=== PATIENT | female | born 1950 | race Caucasian/White ===

== ENCOUNTER 2021-01-28 20:54 | Inpatient (IN) | payer MEDICARE ==
[~2021-01-28] VITALS: Ht 157.5 cm; Wt 38.6 kg
--- NOTE | 2021-01-28 21:10 | NUR ---
BACK WINDER NOTES RECEIVED PATIENT A/OX4. CAME IN AT THIS TIME VIA STRETCHER. NO S/S OF APPARENT DISTRESS -- TOLERATING 2LPM OF O2 VIA NC. NO C/O PAIN. PATIENT WEAK AND CANNOT WALK. PATIENT NOTED TO HAVE MULTIPLE BRUISING. 2 IV LINE -- RFA AND LFA NOTED -- LFA IV LINE NOTED TO BE SWOLLEN AND HEMATOMA HENCE TAKEN OFF. RFA IV LINE INTACT AND PATENT. V/S FOLLOWS: BP: 108/75, HR- 87, T-98.5, AND SATURATING @100%. AWAITING FOR DOCTORS ORDERS.
[2021-01-28] MEDS ORDERED: ACETAMINOPHEN 325 MG TABLET PO PRN (22:00)
[2021-01-28] MEDS ORDERED: MAG HYDROX/AL HYDROX/SIMETH 30 ML UDC PO PRN (22:00)
[2021-01-28] MEDS ORDERED: ONDANSETRON HCL/PF 4 MG/2 ML VIAL IVP PRN (22:00)
[2021-01-28] MEDS ORDERED: Z GUARD REMEDY 2 OZ OINT TP PRN (22:00)
[2021-01-28] MEDS ORDERED: ZOLPIDEM TARTRATE 5 MG TABLET PO PRN (22:00)
[2021-01-28] MEDS ORDERED: IV NS 0.9% 1,000 ML IV PRN (22:00)
[2021-01-28] MEDS ORDERED: MAGNESIUM HYDROXIDE 30 ML UDC PO PRN (22:00)
[2021-01-28] MEDS ORDERED: ENOXAPARIN SODIUM 60 MG/0.6 ML DISP.SYRIN SQ SCH (22:00)
--- NOTE | 2021-01-28 22:00 | NUR ---
CMM PROGRAMMER NOTES PATIENT MRSA SURVEILLANCE SWAB DONE. ID BAND IN PLACE. STARTED ON IV FLUIDS NS @75 ML/HR. PATIENT TESTED RAPID COVID IN [facility] WHICH WAS NEGATIVE. LOVENOX HELD PER MD ORDER -- PROCEDURE TOMORROW.
[2021-01-28 22:06] VITALS: BP 108/75
--- NOTE | 2021-01-28 22:45 | NUR ---
SPA TECHNICIAN NOTE CONSENT SIGNED FOR CTA TOMORROW.
--- NOTE | 2021-01-28 23:01 | NUR ---
CARD TABLE ATTENDANT NOTES LAB CALLED FOR CRITICAL TROPONIN LEVEL OF 6.7 -- TRENDING UP (RECENTLY HIGH). MD NOTIFIED. NO NEW ORDERS.
[2021-01-28 23:54] VITALS: BP 111/72
[2021-01-29] VITALS (41 sets, daily range): BP systolic 66–144; BP diastolic 32–76
--- NOTE | 2021-01-29 04:10 | NUR ---
RN opening notes Received patient in bed, on room air tolerating well without distress. Alert and oriented, verbally able to communicate needs. No complaint of pain as of this time. Vital signs wnl. Noted with anxiety regarding the site of the catheter insertion. Assured patient that it is not bleeding and that there is just redness and bruising around the site. Will continue to monitor.. Addendum: 01/30/21 at 0450 by DAKSHA MOMIN RN wrong time documented
--- NOTE | 2021-01-29 05:56 | NUR ---
FLIGHT SUPERINTENDENT NOTE PATIENT WILL GO TO ICU AFTER CTA -- ROOM 253. PER CHARGE NURSE.
[2021-01-29 06:26] LABS: BASOPHILS % (AUTO) 0.7 % (0.0-2.0); EOSINOPHILS % (AUTO) 0.9 % (0.0-6.0); HEMATOCRIT 31 % (33-45); HEMOGLOBIN 10.2 g/dL (11.5-14.8); LYMPHOCYTES # (AUTO) 1.2 K/uL (0.8-4.8); MEAN CORPUSCULAR HGB CONC 33 g/dl (31.0-36.0); MEAN CORPUSCULAR VOLUME 100 fL (82-100); MONOCYTES # (AUTO) 0.5 K/uL (0.1-1.30); MONOCYTES % (AUTO) 8.4 % (2.0-12.0); NEUTROPHILS # (AUTO) 3.9 K/uL (1.8-8.9); PLATELET COUNT (AUTO) 176 K/uL (150-450); RED BLOOD CELL COUNT(AUTO) 3.06 MIL/uL (4.0-5.2); WHITE BLOOD COUNT (AUTO) 5.7 K/uL (4.3-11.0)
[2021-01-29 06:46] LABS: CHOLESTEROL 174 mg/dL (<200); HDL CHOLESTEROL 95 mg/dL (40-60); LDL 59 mg/dL (0-99); TRIGLYCERIDES 142 mg/dL (30-150)
[2021-01-29 06:48] LABS: ALANINE AMINOTRANSFERASE 16 U/L (12-78); ALBUMIN 3.6 g/dL (3.4-5.0); ALKALINE PHOSPHATASE 53 U/L (46-116); ASPARTATE AMINOTRANSFERASE 40 U/L (15-37); BILIRUBIN,TOTAL 0.6 mg/dL (0.2-1.0); CALCIUM, SERUM 8.9 mg/dL (8.5-10.1); CARBON DIOXIDE 27 mmol/L (21-32); CHLORIDE 102 mmol/L (98-107); CREATININE 1.4 mg/dL (0.6-1.3); GLUCOSE 90 mg/dL (74-106); PHOSPHORUS 4.6 mg/dL (2.5-4.9); POTASSIUM 4.1 mmol/L (3.5-5.1); SODIUM SERUM 142 mmol/L (136-145); TOTAL PROTEIN, SERUM 6.7 g/dL (6.4-8.2); UREA NITROGEN, BLOOD 38 mg/dL (7-18)
[2021-01-29] MEDS ORDERED: IV SET PRIMARY PUMP SET 1 EA INFUS.SET MC ONE (06:53)
[2021-01-29] MEDS ORDERED: IV NS 0.9% 1,000 ML ONE (06:53)
[2021-01-29] MEDS ORDERED: IODIXANOL 150 ML IV ONE ×2 (06:54→09:23)
[2021-01-29] MEDS ORDERED: LIDOCAINE HCL/MPF 1% 30 ML VIAL IJ ONE (06:54)
--- NOTE | 2021-01-29 07:00 | NUR ---
POST GRADUATE INTERN NOTES PATIENT TAKEN DOWN TO OR AT THIS TIME IN STABLE CONDITION.
[2021-01-29] MEDS ORDERED: FENTANYL PF 100MCG/2ML AMPUL ONE (07:37)
--- NOTE | 2021-01-29 07:37 | NUR ---
UNIVERSITY LECTURER OPENING NOTE RECEIVED REPORT FOR PATIENT - PATIENT IS CURRENTLY IN SWIMMING POOL SERVICEPERSON FOR PROCEDURE.
[2021-01-29] MEDS ORDERED: MIDAZOLAM HCL 2 MG/2ML VIAL ONE (07:38)
[2021-01-29] MEDS ORDERED: HEPARIN SODIUM, PORCINE 1,000 UNIT/ML VIAL ONE (07:38)
[2021-01-29] MEDS ORDERED: APIX5TAB PO (07:58)
[2021-01-29] MEDS ORDERED: FOLI0.8T3 PO (07:58)
[2021-01-29] MEDS ORDERED: TRAZ-257 PO (07:58)
[2021-01-29] MEDS ORDERED: ALPR1TAB7 PO (07:58)
[2021-01-29] MEDS ORDERED: ATOR40TA PO (07:58)
[2021-01-29] MEDS ORDERED: IODIXANOL 320MG/ML 100 ML IV ONE (08:18)
[2021-01-29] MEDS ORDERED: NICARDIPINE HCL 25 MG/10 ML VIAL IV ONE (08:21)
[2021-01-29] MEDS ORDERED: IODIXANOL 320MG/ML 50 ML IV ONE (08:55)
[2021-01-29] MEDS ORDERED: TICAGRELOR 90 MG TABLET PO ONE (09:00)
[2021-01-29] MEDS ORDERED: ASPIRIN 81 MG TAB.CHEW PO SCH (09:00)
[2021-01-29] MEDS ORDERED: ASPIRIN 81 MG TAB.CHEW ONE (09:01)
[2021-01-29] MEDS ORDERED: NITROGLYCERIN IN 5 % DEXTROSE 250 ML IV ONE (09:05)
[2021-01-29] MEDS ORDERED: NOREPINEPHRINE 4 MG/4 ML AMPUL IV ONE ×2 (09:09→09:13)
[2021-01-29] MEDS ORDERED: IV NS 0.9% 250 ML IV ONE (09:10)
--- NOTE | 2021-01-29 09:35 | NUR ---
TELEPHONE REPORT RECEIVED FROM QUALITY CONTROL ANALYST, SHEATH STILL IN AT THIS TIME, UNKNOWN IF PATIENT WILL COME UP WITH SHEATH STILL IN OR IF IT WILL BE REMOVED PRIOR TO COMING TO ICU. PER REPORT 2 STENTS - 1 TO PROXIMAL RCA, 1 TO MID RCA. WILL ASSESS WHEN PATIENT ARRIVES IN ICU.
--- NOTE | 2021-01-29 10:08 | NUR ---
PT ARRIVED IN ICU, ROOM 253 AT THIS TIME. PT ALERT, OX4. SHEATH IN PLACE IN LEFT GROIN WITH ORDERS TO CHECK PTT Q2H UNTIL PTT <45 THEN SHEATH CAN BE REMOVED. PT TO BE ON BEDREST FOR 6 HOURS AFTER SHEATH REMOVAL PER MD ORDERS. PT IS COOPERATIVE, UNDERSTANDS THAT SHE NEEDS TO KEEP LEFT LEG STRAIGHT, KEEP HOB FLAT AND NOT TO RAISE HER HEAD UP. PT CHECKED ON FREQUENTLY AND PRN BY NURSING STAFF.
[2021-01-29] MEDS: PANTOPRAZOLE 40 MG VIAL IV SCH (11:50)
[2021-01-29] MEDS ORDERED: LORAZEPAM INJ 2 MG/ML VIAL IV PRN (12:00)
[2021-01-29] MEDS: ENSURE ENLIVE 237 ML LIQUID (VANILLA) PO SCH ×2 (13:00→17:00)
--- NOTE | 2021-01-29 14:00 | NUR ---
WATSON CATHETER INSERTED AT THIS TIME PER PT REQUEST WHILE ON BEDREST
[2021-01-29] MEDS ORDERED: CHLORDIAZEPOXIDE HCL 25 MG CAPSULE PO SCH (14:30)
[2021-01-29] MEDS ORDERED: IV NS 0.9% 1,000 ML IV ONE (14:30)
[2021-01-29] MEDS ORDERED: EPHEDRINE SULFATE IV 50MG VIAL IV ONE (15:00)
[2021-01-29] MEDS ORDERED: LIDOCAINE HCL/PF 2 % 5ML SDV 5 ML VIAL IV ONE (15:00)
[2021-01-29] MEDS ORDERED: PHENYLEPHRINE 10 MG/ML VIAL IV ONE (15:00)
[2021-01-29] MEDS ORDERED: Thiamine 100 MG in IV D5W 50 ML IV SCH (15:00)
[2021-01-29] MEDS ORDERED: PROPOFOL 200 MG/20 ML VIAL IV ONE (15:00)
[2021-01-29] MEDS: FOLIC ACID 1 MG TABLET PO SCH (15:19)
[2021-01-29] MEDS: CHLORDIAZEPOXIDE HCL 25 MG CAPSULE PO SCH (15:19)
--- NOTE | 2021-01-29 15:52 | NUR ---
SPOKE TO SHERRY FROM [facility]. PTT 27.9. SHERRY STATED HE WOULD BE HERE IN 30 MINUTES TO REMOVE SHEATH. SUPPLIED AT BEDSIDE.
--- NOTE | 2021-01-29 16:55 | NUR ---
SHERRY ALVAREZ FROM [employer] HERE REMOVING RIGHT FEM SHEATH. PT WILL BE ON BEDREST FOR 6 HOURS STARTING NOW. BEDREST WILL END AT 2300.
--- NOTE | 2021-01-29 18:55 | NUR ---
END OF SHIFT NOTE: LEFT GROIN SHEATH WAS REMOVED, SOME BRUISING AND SWELLING NOTED, NO CHANGE SINCE SHEATH WAS REMOVED. WATSON CATHETER IN PLACE PER PT REQUEST. PT ON BEDREST TILL 2300 TODAY. PT REFUSES TO EAT UNTIL SHE CAN PUT THE HOB UP D/T VOCAL CORD PARALYSIS FROM RADIATION. PT IS GETTING LIBRIUM TID PER ORDER FROM DR. HALEY FOR POSSIBLE ALCOHOL WITHDRAWAL. PT CHECKED ON HOURLY AND PRN BY NURSING STAFF.
--- NOTE | 2021-01-29 19:30 | NUR ---
RN opening notes Received patient in bed, on room air tolerating well without distress. Alert and oriented, verbally able to communicate needs. No complaint of pain as of this time. Vital signs wnl. Noted with anxiety regarding the site of the catheter insertion. Assured patient that it is not bleeding and that there is just redness and bruising around the site. Will continue to monitor..
[2021-01-29] MEDS ORDERED: ENOXAPARIN SODIUM 40 MG/0.4 ML DISP.SYRIN SQ SCH (21:00)
[2021-01-29] MEDS: LORAZEPAM INJ 2 MG/ML VIAL IV PRN (21:30)
[2021-01-29] MEDS ORDERED: CLOPIDOGREL BISULFATE 300 MG TABLET PO ONE (22:00)
[2021-01-30] VITALS (21 sets, daily range): BP systolic 81–122; BP diastolic 35–79
[2021-01-30] MEDS: LORAZEPAM INJ 2 MG/ML VIAL IV PRN (03:48)
--- NOTE | 2021-01-30 04:51 | NUR ---
RN closing notes Patient awake in bed, noted with anxiety Ativan 1mg x 2 administered, with relief. Requested for sleeping pill, Ambien given with help. No complaint of pain or discomfort. Vital signs and lab values wnl. No significant change of condition. Room air tolerating well. Kept clean and dry. Will endorsed to next shift for continuity of care.
--- NOTE | 2021-01-30 08:00 | NUR ---
RN NOTES RECEIVED PATIENT IN THE BED A/O X4, VSS, NO ACUTE RESPIRATORY DISTRESS, REFUSED PAIN, CHECKED ON LEFT GROIN AREA INTACT DRESSING, NO BLEEDING, SURROUNDING TISSUES SOFT TO PALPATE, REMOVE WATSON CATHETER output was 100 ml. IV ACCESS ON PENELOPE, INFUSING NS @250ml/HR.PATIENT NOTE SHE WILL EAT BREAKFAST LATER. CALL LIGHT WITHIN TO REACH. WILL FOLLOW UP.
[2021-01-30] MEDS: ASPIRIN 81 MG TAB.CHEW PO SCH (08:16)
[2021-01-30] MEDS: CLOPIDOGREL BISULFATE 75 MG TABLET PO SCH (08:16)
[2021-01-30] MEDS: FOLIC ACID 1 MG TABLET PO SCH (08:16)
[2021-01-30] MEDS: CHLORDIAZEPOXIDE HCL 25 MG CAPSULE PO SCH ×3 (08:17→16:59)
[2021-01-30] MEDS: PANTOPRAZOLE 40 MG VIAL IV SCH (08:17)
[2021-01-30] MEDS: ENSURE ENLIVE 237 ML LIQUID (VANILLA) PO SCH ×3 (08:17→16:57)
[2021-01-30] MEDS: THIAMINE HCL 100 MG TABLET PO SCH (09:39)
--- NOTE | 2021-01-30 09:42 | NUR ---
rn notes Seen patient via hospitalist Dr Servin, get TO order to downgrade tele unit.
--- NOTE | 2021-01-30 10:54 | NUR ---
rn notes seen patient via Pt, patient ambulate using walker 40feets with minimal assist.
[2021-01-30] MEDS ORDERED: ALPRAZOLAM 1 MG TABLET PO PRN (11:00)
--- NOTE | 2021-01-30 11:30 | NUR ---
RN NOTES TRANSFERRED PATIENT TO THE TELE UNIT ROOM 325 BED 1. PATIENT STABLE. VSS, NO ACUTE RESPIRATORY DISTRESS. BELONGING WITH THE PATIENT. WITH BEDSIDE. BEDSIDE REPORT GIVEN KIM MENDOZA FOLLOW PLAN OF CARE.
--- NOTE | 2021-01-30 11:40 | NUR ---
CASINO CASHIERDRAFTING TECHNICIAN NOTES RECEIVED TRANSFER FROM ICU. PATIENT MEDICALLY STABLE. VS WNL. WILL CONTINUE TO MONITOR.
--- NOTE | 2021-01-30 18:53 | NUR ---
CARDIOGRAPHER CLOSING NOTES PATIENT REMAINS IN BED, AWAKE, A/O X4. PATIENT ON ROOM AIR; BREATHING EVEN AND UNLABORED, NO SOB NOTED AT THIS TIME. NO COMPLAINS OF PAIN. TELE MONITOR WITH A CURRENT READING OF SR 90BPM. IV ACCESS OF RFA AND PENELOPE PRESENT AND INTACT. SAFETY PRECAUTIONS IN PLACE; BED IN LOW POSITION AND LOCKED, RAILS UP X2, CALL LIGHT WITHIN REACH. WILL ENDORSE TO VENEER STOCK LAYER NURSE.
--- NOTE | 2021-01-30 19:30 | NUR ---
TANK WELDER NOTES RECEIVED LYING COMFORTABLY ON BED,BREATHING REGULAR,NOT IN NAY FORM OF DISTRESS,S/P CARDIAC CATH WITH STENT PLACEMENT ON 01/28.SALINE LOCK ON BOTH ARMS INTACT AND PATENT.DENIES DISCOMFORTS AT THE MOMENT.CALL LIGHT IN REACH,NEEDS ANTICIPATED.
[2021-01-30] MEDS ORDERED: ATORVASTATIN 40 MG TABLET PO SCH (22:00)
[2021-01-30] MEDS ORDERED: TRAZODONE 50 MG TABLET PO SCH (22:00)
[2021-01-31] VITALS: BP 104/52
[2021-01-31 04:00] VITALS: BP 125/66
[2021-01-31 05:00] VITALS: BP 125/66
--- NOTE | 2021-01-31 07:07 | NUR ---
CARBIDE TOOL MAKER NOTES SLEPT WELL AT NIGHT,NO COMPLAINTS OF ANY DISCOMFORTS.NO FALL,NO INJURY,ALL DUE MEDS ADMINISTERED,CALL LIGHT IN REACH,NEEDS ATTENDED.
[2021-01-31 08:00] VITALS: BP 105/65
--- NOTE | 2021-01-31 08:01 | NUR ---
TELE/RN OPENING NOTES RECEIVED PATIENT IN BED, AWAKE, A/O X4. PATIENT ON ROOM AIR; BREATHING EVEN AND UNLABORED, NO SOB NOTED AT THIS TIME. NO COMPLAINS OF PAIN. TELE MONITOR WITH A CURRENT READING OF SR 90'S. IV ACCESS OF RFA AND PENELOPE PATENT AND INTACT. SAFETY PRECAUTIONS IN PLACE; BED IN LOW POSITION AND LOCKED, RAILS UP X2, CALL LIGHT WITHIN REACH. WILL CONTINUE WITH THE PLAN OF CARE.
[2021-01-31 08:16] LABS: CALCIUM, SERUM 8.6 mg/dL (8.5-10.1); CREATININE 1.3 mg/dL (0.6-1.3); POTASSIUM 3.8 mmol/L (3.5-5.1)
[2021-01-31] MEDS ORDERED: APIXABAN 2.5 MG TABLET PO SCH (09:00)
[2021-01-31] MEDS ORDERED: FOLIC ACID 1 MG TABLET PO SCH (09:00)
[2021-01-31] MEDS ORDERED: PANTOPRAZOLE 40 MG TABLET.DR PO SCH (09:00)
[2021-01-31] MEDS: CHLORDIAZEPOXIDE HCL 25 MG CAPSULE PO SCH (09:11)
[2021-01-31] MEDS: CLOPIDOGREL BISULFATE 75 MG TABLET PO SCH (09:11)
[2021-01-31] MEDS: ASPIRIN 81 MG TAB.CHEW PO SCH (09:12)
[2021-01-31] MEDS: THIAMINE HCL 100 MG TABLET PO SCH (09:12)
[2021-01-31] MEDS: ENSURE ENLIVE 237 ML LIQUID (VANILLA) PO SCH (09:12)
[2021-01-31 12:00] VITALS: BP 111/50
--- NOTE | 2021-01-31 12:23 | NUR ---
TELE/LANDFILL GRADER NOTES PATIENT IS ALERT AND ORIENTED X3, ABLE TO MAKE NEEDS KNOWN. MEDICALLY STABLE AND DR. KNIGHT ORDERED DISCHARGE TO HOME. DISCHARGE INSTRUCTIONS GIVEN TO PATIENT AND SON BRE PRESENT AT BEDSIDE. PATIENT AND SON VERBALIZED UNDERSTANDING. DISCHARGE PAPERS SIGNED AND ALL BELONGINGS ACCOUNTED FOR. IV ACCESS DISCONTINUED AND PATIENT WENT HOME WITH THE SON BRE VIA PRIVATE CAR.
== END 2021-01-31 12:00 | disposition home or self-care (01) | DRG 246 ==
LOC: TELE 20:54 → ICU 01-29 08:08 → TELE 01-30 11:11
PROVIDERS: ADMIT Hospitalist; ATTEND Internal Medicine
PROC: 027035Z Dilation of Coronary Artery, One Artery with Two Drug-eluting Intraluminal Devices, Percutaneous Approach (ICD-10-PCS; principal; 2021-01-29)
PROC: 4A023N7 Measurement of Cardiac Sampling and Pressure, Left Heart, Percutaneous Approach (ICD-10-PCS; 2021-01-29)
PROC: B211YZZ Fluoroscopy of Multiple Coronary Arteries using Other Contrast (ICD-10-PCS; 2021-01-29)
PROC: B215YZZ Fluoroscopy of Left Heart using Other Contrast (ICD-10-PCS; 2021-01-29)
PROC: B44LZZZ Ultrasonography of Femoral Artery (ICD-10-PCS; 2021-01-29)
PROC: B410YZZ Fluoroscopy of Abdominal Aorta using Other Contrast (ICD-10-PCS; 2021-01-29)
DX: I21.4 Non-ST elevation (NSTEMI) myocardial infarction (principal); J96.00 Acute respiratory failure, unspecified whether with hypoxia or hypercapnia; I48.20 Chronic atrial fibrillation, unspecified; J90 Pleural effusion, not elsewhere classified; N17.9 Acute kidney failure, unspecified; J98.11 Atelectasis; F41.9 Anxiety disorder, unspecified; Z85.41 Personal history of malignant neoplasm of cervix uteri; I25.10 Atherosclerotic heart disease of native coronary artery without angina pectoris; Z85.118 Personal history of other malignant neoplasm of bronchus and lung; Z90.2 Acquired absence of lung [part of]; Z79.01 Long term (current) use of anticoagulants; Z90.710 Acquired absence of both cervix and uterus; Z92.3 Personal history of irradiation; E86.0 Dehydration; F10.10 Alcohol abuse, uncomplicated; Y90.9 Presence of alcohol in blood, level not specified; J38.00 Paralysis of vocal cords and larynx, unspecified
CPT/HCPCS: 36415; 80048-TC; 80053-TC; 80061-TC; 84100-TC; 84484-TC; 85025-TC; 85347; 85730-TC; 87081-TC; 92980; 97116-TC; 97530-TC; A6403; C1725; C1769; C1887; C1894; C9113; G0378; G0500; J1644; J2060; J2250; J2370; J2704; J3010; J3411; J3490; J7030; J7042; J7050; J7060; Q9967